=== PATIENT | female | born 1945 | race Caucasian/White ===

== ENCOUNTER → 2024-02-12 | Outpatient (CLI) | payer BC ==
[~2024-02-12] VITALS: Ht 160 cm; Wt 99.3 kg
[2024-02-12 11:42] LABS: ABG BASE EXCESS 3.4 mmol/L (-2.0-2.0); ABG HCO3 27.9 mmol/L (22.0-26.0); ABG OXYGEN SATURATION 91.7 % (94-97); ABG PCO2 (T) 41.9 mmHg (32.0-45.0); ABG PH (T) 7.441 (7.350-7.450); ABG PO2 (T) 58.5 mmHg (75.0-100.0); ALLEN'S TEST POSITIVE; FCOHb 0.6 % (0.0-3.9); FHHb 8.2 % (0.0-5.0); FMetHb 0.2 % (0.0-1.5); MODE ROOM AIR; TOTAL HEMOGLOBIN 14.6 G/dl (12.0-16.0)
[2024-02-12 11:45] VITALS: PULSE 86; RESP 16; O2SAT 93
[2024-02-12] MEDS: albuterol 2.5 MG/3 ML nebule NEB ONE (12:10)
== END | disposition home or self-care (01) ==
LOC: RT 10:42
PROVIDERS: ATTEND Surgery
DX: J98.4 Other disorders of lung (principal)
CPT/HCPCS: 36600; 82803; 85018; 94060; 94727; 94729; 94760